=== PATIENT | female | born 1985 | race American Indian/Alaskan Native ===

== ENCOUNTER 2017-02-07 17:45 | Emergency (ER) | payer BC ==
[2017-02-07 20:08] LABS: Hematocrit 40.9 % (30.3-42.9); Hemoglobin 13.5 gm/dl (10.1-14.3); Mean Corpuscular HGB Conc 33 % (30-34); Mean Corpuscular Hemoglobin 29 pg (28-32); Mean Corpuscular Volume 87 fl (79-97); Platelet Count 224 K/mm3 (140-440); Red Blood Count 4.72 M/mm3 (3.65-5.03); Red Cell Distribution Width 13.2 % (13.2-15.2)
[2017-02-07 20:31] LABS: White Blood Count 24.4 K/mm3 (4.5-11.0)
[2017-02-07 20:32] LABS: Alanine Aminotransferase 24 units/L (7-56); Albumin 4.5 g/dL (3.9-5); Albumin/Globulin Ratio 1.6 %; Alkaline Phosphatase 64 units/L (35-129); Anion Gap 19 mmol/L; BUN/Creatinine Ratio 15.55; Bilirubin,Total 0.8 mg/dL (0.1-1.2); Blood Urea Nitrogen 14 mg/dL (7-17); Calcium 9.5 mg/dL (8.4-10.2); Carbon Dioxide 24 mmol/L (22-30); Chloride 97.6 mmol/L (98-107); Glucose 121 mg/dL (65-100); Lipase 9 units/L (13-60); Potassium 4.1 mmol/L (3.6-5.0); Sodium 136 mmol/L (137-145); Total Protein 7.4 g/dL (6.3-8.2)
--- NOTE | 2017-02-07 20:45 | Emergency Department Report ---
Chief Complaint: Abdominal Pain Stated Complaint: PAIN IN PELVIC AREA Time Seen by Provider: 02/07/17 20:42 - HPI History of Present Illness: PT c/o R sided pain. PT states she woke up with the pain. PT states this feels like previous kidney stone. - ROS Review of Systems: + n/v - hematuria - Exam Vital Signs: Vital Signs 02/07/17 18:05 Temperature 99.3 F Pulse Rate 106 H Respiratory 20 Rate Blood Pressure 133/74 [Right] O2 Sat by Pulse 100 Oximetry Physical Exam: pt looks well, non toxic gcs 15 pt with RUQ tenderness MSE screening note: Focused history and physical exam performed. Due to findings the following was ordered: us ED Medical Decision Making - Lab Data Result diagrams: 02/07/17 19:53 02/07/17 19:53 ED Disposition for MSE Condition: Stable Instructions: Abdominal Pain (ED)
[2017-02-07 21:26] LABS: Basophils % (Manual) 0 % (0.0-1.8); Blastocytes % (Manual) 0 %; Eosinophils % (Manual) 0 % (0.0-4.3)
[2017-02-07 21:27] LABS: Diff Status Complete; Large Platelets 1+; Platelet Estimate Consistent w Auto; RBC Morphology Normal
[2017-02-07 21:59] LABS: Bilirubin,Urine NEG (Negative); Blood,Urine SM (Negative); Ketones,Urine NEG (Negative); Leukocyte Esterase,Urine LG (Negative); Nitrite,Urine NEG (Negative); Protein,Urine <15 mg/dL mg/dL (Negative); Urobilinogen,Urine < 2.0 mg/dL (<2.0)
--- NOTE | 2017-02-07 23:15 | Ultrasound Report ---
FINAL REPORT PROCEDURE: US ABDOMEN LIMITED TECHNIQUE: Real-time sonography was performed of the right upper quadrant the abdomen with image documentation. CPT 58844 HISTORY: elevated wbc, n/v, ruq tenderness COMPARISON: CT exam dated November 02, 2015 FINDINGS: Visualized portions of the liver and pancreas display no abnormalities. There is likely a tiny amount of pericholecystic fluid but no gallbladder wall thickening is seen. Common bile duct is normal in size. Small amount of fluid is seen in Morison's pouch, also, and the fluid in the right upper quadrant may be mild ascites. Right kidney measures 10.5 cm in length and appears to have increased echogenicity as well as mild to moderate hydronephrosis. Consideration should be given to ureteral obstruction. IMPRESSION: Mild to moderate right-sided hydronephrosis is seen with increased cortical echogenicity in the right kidney. Findings are worrisome for possible ureteral obstruction. Correlation with unenhanced CT of the abdomen pelvis may be useful. Small amount of fluid in the region of Morison's pouch and gallbladder fossa may be mild ascites, as the gallbladder appears normal otherwise.
[2017-02-08] MEDS ORDERED: TYLENOL PO ONE (02:39)
[2017-02-08] MEDS ORDERED: TORADOL IV ONE (03:37)
[2017-02-08] MEDS ORDERED: ROCEPHIN/NS 1 GM/50 ML 1 GM/50 ML BAG IV ONE (03:37)
[2017-02-08] MEDS ORDERED: ZOFRAN IV ONE (03:37)
--- NOTE | 2017-02-08 03:53 | Emergency Department Report ---
HPI - General Chief Complaint: Abdominal Pain Time Seen by Provider: 02/07/17 20:42 - HPI HPI: This is a 31-year-old -[place] female presents to the emergency department from home with complaint of right-sided abdominal and flank pain, as well as some nausea and vomiting, that has been going on since waking up this morning, Friday. Patient admits to some mild dysuria but otherwise denies any vaginal bleeding or discharge, back pain, chest pain, shortness of breath. The patient also has been having some constipation over the past few days with a tried a rectal suppository without any relief. Patient says she has a history of kidney stones, gallstones. She has a past surgical history of tubal ligation. She does not have a primary care doctor. No recent travel or sick contacts at home. Patient says she is feeling feverish but has not checked her temperature at home. ED Past Medical Hx - Past Medical History Previous Medical History?: Yes Hx Kidney Stones: Yes (2 years ago) - Surgical History Past Surgical History?: Yes Additional Surgical History: Tubal - Social History Smoking Status: Current Every Day Smoker Substance Use Type: Alcohol ED Review of Systems ROS: Stated complaint: PAIN IN PELVIC AREA Other details as noted in HPI Comment: All other systems reviewed and negative Constitutional: chills, fever Eyes: denies: eye pain, eye discharge, vision change ENT: denies: ear pain, throat pain Respiratory: denies: cough, shortness of breath, wheezing Cardiovascular: denies: chest pain, palpitations Gastrointestinal: abdominal pain, nausea, vomiting Genitourinary: dysuria. denies: discharge Musculoskeletal: denies: back pain, joint swelling, arthralgia Skin: denies: rash, lesions Neurological: denies: headache, weakness, paresthesias Physical Exam - Physical Exam Vital Signs: Vital Signs 02/07/17 02/08/17 02/08/17 18:05 02:35 03:30 Temperature 99.3 F 100.8 F H 99.9 F H Pulse Rate 106 H 112 H 106 H Respiratory 20 20 22 Rate Blood Pressure 148/87 Blood Pressure 133/74 127/71 [Right] O2 Sat by Pulse 100 100 100 Oximetry ED Course Vital Signs 02/07/17 02/08/17 02/08/17 18:05 02:35 03:30 Temperature 99.3 F 100.8 F H 99.9 F H Pulse Rate 106 H 112 H 106 H Respiratory 20 20 22 Rate Blood Pressure 148/87 Blood Pressure 133/74 127/71 [Right] O2 Sat by Pulse 100 100 100 Oximetry - Consultations Consultation #1: I spoke with the neurologist at [place], Dr. Ernst, who has accepted the patient for transfer to [facility]. She would like the patient there as soon as possible and if the patient were to become hemodynamically unstable prior to transfer and she recommends IR for nephrostomy tube. 02/08/17 05:30 ED Medical Decision Making - Lab Data Result diagrams: 02/07/17 19:53 02/07/17 19:53 - Radiology Data Radiology results: report reviewed Abdominal ultrasound shows mild to moderate right-sided hydronephrosis with increased cortical echogenicity of the right kidney. Findings are worrisome for possible ureteral obstruction. Small amount of fluid in the region of the Morison's pouch in gallbladder fossa may be mild ascites of the gallbladder appears normal otherwise. CT of the abdomen and pelvis without contrast shows a 4 mm stone at the right ureterovesicular junction. There is acute moderate right hydronephrosis and hydroureter. There is no bowel obstruction. There are diverticula of the colon. No acute diverticulitis. The appendix is normal. There is no ascites or free air, abscess or adenopathy. - Medical Decision Making 31-year-old female presents with 1 day of right-sided upper abdominal and flank pain. Patient presents with a fever, tachycardia. Labs show a leukocytosis of 25,000 and a urinary tract infection. An ultrasound was done first that showed right-sided acute moderate hydronephrosis and hydroureter with concern for an obstructing stone. After this a CT without contrast was done of the abdomen and pelvis that shows a 4 mm stone to the right ureterovesicular junction and once again acute moderate right hydronephrosis and hydroureter. With the patient having a fever, elevated white count, nausea and vomiting and a obstructing stone, the patient appears to have a septic stone. Since we do not have urology addictions therapist, the patient was accepted for transfer to [facility] where she will most likely either have a stent or a nephrostomy. The patient has been notified of all the labs, imaging and plan for transfer and understands and agrees. - Differential Diagnosis septic stone, UTI, pyelonephritis, cholelithiasis Critical Care Time: No Critical care attestation.: If time is entered above; I have spent that time in minutes in the direct care of this critically ill patient, excluding procedure time. ED Disposition Clinical Impression: Hydronephrosis with renal calculous obstruction, Ureteral stone Urinary tract infection Qualifiers: Urinary tract infection type: acute cystitis Hematuria presence: without hematuria Qualified Code(s): N30.00 - Acute cystitis without hematuria Fever Qualifiers: Fever type: unspecified Qualified Code(s): R50.9 - Fever, unspecified Disposition: DC/TX ANOTHER TYPE HEALTHCARE Is pt being admited?: No Condition: Fair Instructions: Abdominal Pain (ED) Referrals: PRIMARY CARE, [Primary Care Provider] - 3-5 Days Time of Disposition: 05:35
--- NOTE | 2017-02-08 04:38 | Cat Scan Report ---
FINAL REPORT PROCEDURE: CT ABDOMEN PELVIS WO CON TECHNIQUE: Computerized axial tomography of the abdomen and pelvis was performed without intravenous contrast. This study is performed without intravascular contrast material and its sensitivity for abdominal and pelvic pathology, including neoplasms, inflammation, abscess, free fluid, thrombosis, arterial dissection and infarction, is reduced compared with a contrast enhanced study. HISTORY: abd pain COMPARISON: No prior studies are available for comparison. FINDINGS: Visualized lower thorax: No significant abnormality. Liver: Normal size and attenuation. Spleen: Normal size and attenuation. Gallbladder and biliary system: Normal. Pancreas: Normal. Adrenals: Normal. Kidneys: There is a 4 millimeter stone at the right ureterovesical junction. There is acute moderate right hydronephrosis and hydroureter. There are no stones in the kidneys themselves.. GI tract: There is no bowel obstruction. There are diverticula of the colon. There is no acute diverticulitis. The appendix is normal.. Lymph nodes and mesentery: Normal. Vasculature: Normal. Bladder: Normal. Reproductive organs: Normal. Peritoneum: There is no ascites or free air, abscess or adenopathy.. Musculoskeletal structures: No significant abnormality. Other: None. IMPRESSION: There is a 4 millimeter stone at the right ureterovesical junction. There is acute moderate right hydronephrosis and hydroureter. There is no bowel obstruction. There are diverticula of the colon. There is no acute diverticulitis. The appendix is normal.. There is no ascites or free air, abscess or adenopathy.. .
[2017-02-08] MEDS ORDERED: FLOMAX PO ONE (04:54)
[2017-02-08] MEDS ORDERED: NACL 0.9% 1000 ML 1,000 ML IV ONE (05:13)
[2017-02-08 05:57] VITALS: BP 122/70
== END 2017-02-08 06:15 | disposition other institution (70) ==
LOC: ED 17:45
DX: N13.2 Hydronephrosis with renal and ureteral calculous obstruction (principal); N21.1 Calculus in urethra; N30.00 Acute cystitis without hematuria; F17.200 Nicotine dependence, unspecified, uncomplicated; Z98.51 Tubal ligation status
CPT/HCPCS: 36415; 74176; 76705; 80053; 81001; 83690; 84703; 85007; 85025; 87086; 96361; 96365; 96375; 99285; J0696; J1885; J2405; J7030

== ENCOUNTER 2017-09-28 00:02 | Emergency (ER) | payer SELFPAY ==
[2017-09-28 00:08] VITALS: BP 128/76
[2017-09-28] MEDS ORDERED: XYLOCAINE 1% 20 mL INFILTRATI ONE (07:33)
--- NOTE | 2017-09-28 07:34 | Emergency Department Report ---
Abscess Boil HPI - HPI Chief Complaint: Skin/Abscess/Foreign Body Stated Complaint: BOIL AT LEFT ARM Time Seen by Provider: 09/28/17 07:06 Duration: 1 Week Location: Upper Extremity Severity: Mild History: No Fever, No Pain, No Purulent Drainage, No Numbness, No Foreign Body, No Previous History, No Insect Bite HPI: This is a 31-year-old female nontoxic, well nourished in appearance, no acute signs of distress presents to the ED with c/o of left under arm boil x1 week. Patient denies any trauma. Denies any fever, chills, headache, nausea, vomiting, chest pain, shortness of breathe, numbness, tingling, headache, or stiff neck. Describes pain as aching with level of 8/10. Patient denies any allergies or PMH. Home Medications: Previous Rx's Medication Instructions Recorded Last Taken Type Ibuprofen [Motrin] 600 mg PO Q8H PRN #30 tablet 09/28/17 Unknown Rx Sulfamethoxazole/Trimethoprim 1 each PO BID #14 tablet 09/28/17 Unknown Rx [Bactrim DS TAB] Allergies/Adverse Reactions: Allergies Allergy/AdvReac Type Severity Reaction Status Date / Time No Known Allergies Allergy Verified 09/23/16 02:11 ED Review of Systems ROS: Stated complaint: BOIL AT LEFT ARM Other details as noted in HPI Constitutional: denies: chills, fever Eyes: denies: eye pain, eye discharge, vision change ENT: denies: ear pain, throat pain Respiratory: denies: cough, shortness of breath, wheezing Cardiovascular: denies: chest pain, palpitations Endocrine: no symptoms reported Gastrointestinal: denies: abdominal pain, nausea, diarrhea Genitourinary: denies: urgency, dysuria, discharge Musculoskeletal: denies: back pain, joint swelling, arthralgia Skin: other (abscess). denies: rash, lesions Neurological: denies: headache, weakness, paresthesias Psychiatric: denies: anxiety, depression Hematological/Lymphatic: denies: easy bleeding, easy bruising ED Past Medical Hx - Past Medical History Previous Medical History?: No Hx Kidney Stones: Yes (2 years ago) - Surgical History Past Surgical History?: Yes Additional Surgical History: Tubal - Social History Smoking Status: Current Every Day Smoker Substance Use Type: Alcohol - Medications Home Medications: Home Medications Medication Instructions Recorded Confirmed Last Taken Type Ibuprofen [Motrin] 600 mg PO Q8H PRN #30 tablet 09/28/17 Unknown Rx Sulfamethoxazole/Trimethoprim 1 each PO BID #14 tablet 09/28/17 Unknown Rx [Bactrim DS TAB] ED Abscess Boil Physical Exam - Exam General: Vital signs noted. No distress. Alert and acting appropriately. Front/Back of Body, Lg (Color): 1 - abscess Size: 2 cm Exam: Yes Tenderness, Yes Fluctuance, Yes Normal Neurologic Exam, Yes Normal Circulation, No Surrounding Cellulites/Erythema, No Lymphangitis, No Crepitation , No Heart Murmur Exam: My physical exam. GENERAL: The patient is a well-developed, well- nourished female in no apparent distress. Patient is alert and acting appropriately for age. Alert and oriented 3, no apparent distress, normal gait , atraumatic. HEENT: Head is normocephalic and atraumatic. PERRL, Extraocular muscles are intact. Pupils are equal, round, and reactive to light and accommodation. Nares appeared normal. Mouth is well hydrated and without lesions. Mucous membranes are moist. Posterior pharynx clear of any exudate or lesions. Mouth is well hydrated and without lesions. Tonsils not erythematous or swollen. Uvula midline. Tongue elevated. Mucous members are moist. Posterior pharynx clear, no exudate or lesions. Patent airways. . NECK: Supple. No carotid bruits. No lymphadenopathy or thyromegaly.nontender. No meningitic signs are noted. . LUNGS: Clear to auscultation. Non labor breathing. No intercostal retractions. Symmetrical with respiration, no wheezing, no rales, or crackles. . HEART: Regular rate and rhythm without murmur, rubs or gallops. No reproducible. S1, S2 present, regular rate and rhythm without murmur, no rubs, no gallops. . ABDOMEN: Soft, nontender, and nondistended. Positive bowel sounds. No hepatosplenomegaly was noted. No guarding or rebound tenderness, negative epigastric bruit. Negative psoas sign, negative richardson sign, negative McBurneys sign. . EXTREMITIES: Without any cyanosis, clubbing, rash, lesions or edema. Peripheral pulses intact. Capillary refill less than 2 seconds. Full range of motion bilaterally. . NEUROLOGIC: Cranial nerves II through XII are grossly intact. Alert and oriented x 3. Normal gait. Symmetrical strength and sensation. Reflexes 2+ throughout. Cerebellar testing normal. GCS score of 15. . PSYCHIATRIC: Normal affect with no suicidal or homicidal ideations. Skin: 2 cm abscess with induration or fluctuance. No pus or drainage noted. I & D Note - I & D Note I & D Note: Under sterile field, I used Betadine to cleanse the area. I then used 1% lidocaine with 25-gauge 5/8 needle to inject area for anesthetic purposes. Total volume injected 3 mL. I then used an 11 blade to make a 1 cm incision. About 10 mL's of purulent drainage has been noted. I then used a hemostat to break the abscess formation. I then used sterile 0.9% normal saline flush to flush the wound with total volume of 40 mL used. I then put a 1 /4 iodoform packing to the incision. A sterile 4 x 4 with tape has been applied as dressing. Bleeding is under control. Patient tolerated the procedure well with no signs of distress noted. ED Course Vital Signs 09/28/17 09/28/17 00:05 00:40 Temperature 98.1 F 98.0 F Pulse Rate 100 H 97 H Respiratory 18 17 Rate Blood Pressure 128/76 128/76 O2 Sat by Pulse 100 99 Oximetry - Reevaluation(s) Reevaluation #1: 09/28/17 07:33 Patient is speaking in full sentences with no signs of distress noted. Critical care attestation.: If time is entered above; I have spent that time in minutes in the direct care of this critically ill patient, excluding procedure time. ED Medical Decision Making - Medical Decision Making This is a 31-year-old female that presents with abscess. Patient is stable and was examined by me. Incision and drainage was performed and no signs of distress. Patient received packing and instructed to return in 2 days for reassessment and packing removal. Patient received Bactrim at discharge. Patient was instructed Follow-up with a primary care doctor in 3-5 days or if symptoms worsen and continue return to emergency room as soon as possible. At time time of discharge, the patient does not seem toxic or ill in appearance. No acute signs of distress noted. Patient agrees to discharge treatment plan of care. No further questions noted by the patient. ED Disposition Clinical Impression: Abscess, Encounter for incision and drainage procedure Disposition: TO HOME OR SELFCARE Is pt being admited?: No Does the pt Need Aspirin: No Condition: Stable Instructions: Abscess Incision and Drainage (ED), Abscess (ED), Sulfamethoxazole/Trimethoprim (By mouth), Ibuprofen (By mouth) Additional Instructions: Return in 2 days to the emergency room for packing removal and reassessment of abscess. Follow-up with a primary care doctor in 3-5 days or if symptoms worsen and continue return to emergency room as soon as possible. Prescriptions: Ibuprofen [Motrin] 600 mg PO Q8H PRN #30 tablet PRN Reason: Pain Sulfamethoxazole/Trimethoprim [Bactrim DS TAB] 1 each PO BID #14 tablet Referrals: PRIMARY MD JT [Primary Care Provider] - 3-5 Days ANTONIO CAMPBELL MD [Staff Physician] - 3-5 Days [facility] [Outside] - 3-5 Days [facility] [Outside] - 3-5 Days Forms: Work/School Release Form(ED)
== END 2017-09-28 08:22 | disposition home or self-care (01) ==
LOC: ED 00:02
DX: L02.414 Cutaneous abscess of left upper limb (principal); F17.200 Nicotine dependence, unspecified, uncomplicated